=== PATIENT | female | born 1985 | race Caucasian/White ===

== ENCOUNTER 2017-04-05 11:17 | Inpatient (IN) | payer MEDICAID ==
[~2017-04-05] VITALS: Ht 154.9 cm; Wt 133.2 kg
[2017-04-05 11:29] VITALS: Ht 154.9 cm; Wt 133.2 kg
[2017-04-05 11:30] VITALS: BP 142/67; PULSE 75; RESP 20
[2017-04-05] MEDS ORDERED: PRENAT PO (12:01)
[2017-04-05] MEDS ORDERED: FER325 PO (12:01)
[2017-04-05 13:04] LABS: ADD SCAN DIFF NO
[2017-04-05 13:09] LABS: BASOPHILS % 0.1 % (0.0-2.0); EOSINOPHILS # 0.1 10^3/ul (0.0-0.5); EOSINOPHILS % 1.4 % (0.0-7.0); HEMATOCRIT 27.7 % (37.0-47.0); HEMOGLOBIN 9.4 g/dl (12.0-16.0); LYMPHOCYTES # 1.7 10^3/ul (0.8-2.9); LYMPHOCYTES % 22.1 % (15.0-51.0); MEAN CORPUSCULAR HEMOGLOBIN 28.2 pg (29.0-33.0); MEAN CORPUSCULAR HGB CONC 33.9 g/dl (32.0-37.0); MEAN CORPUSCULAR VOLUME 83.2 fl (82.0-101.0); MEAN PLATELET VOLUME 11.7 fl (7.4-10.4); MONOCYTE # 0.4 10^3/ul (0.3-0.9); MONOCYTES % 5.3 % (0.0-11.0); NEUTROPHIL # 5.5 10^3/ul (1.6-7.5); NEUTROPHILS % 70.2 % (39.0-77.0); PLATELET COUNT 223 10^3/UL (140-415); RED BLOOD COUNT 3.33 10^6/ul (4.20-5.40); RED CELL DISTRIBUTION WIDTH 14.1 % (11.5-14.5); WHITE BLOOD COUNT 7.8 10^3/ul (4.8-10.8)
--- NOTE | 2017-04-05 13:22 | RADRPT ---
PROCEDURE: US OB. CLINICAL INDICATION: Twin gestation. Hypertension. TECHNIQUE: Multiple sonographic images of the uterus were obtained. The images were revi ewed on a PACS workstation. COMPARISON: No prior studies are available for comparison. FINDINGS: There is a live twin gestation gestation. Twin A: heart rate is 122 beats per minute. Measurements were made in order to determine age. The results are as follows: BPD = 8.33 cm. HC = 29.94 cm. AC = 30.20 cm. FL = 6.35 cm. Estimated weight is 2238 +/- 336 grams. LMP growth percentile is 52 %. Maximum vertical pocket of amniotic fluid is 3.4 cm. Menstrual age by ultrasound dates is 33 weeks 3 days. The estimated date of delivery is 05/21/2017. Position is cephalic right and placenta is fundal grade II. There is no evidence for an abruption or placenta previa. Twin B: heart rate is 122 beats per minute. Measurements were made in order to determine age. The results are as follows: BPD = 8.29 cm. HC = 30.13 cm. AC = 30.32 cm. FL = 6.32 cm. Estimated weight is 2245 +/- 337 grams. LMP growth percentile is 53 %. Maximum vertical pocket of amniotic fluid is 4.8 cm. Menstrual age by ultrasound dates is 33 weeks 3 days. The estimated date of delivery is 05/21/2017. Position is transverse left and placenta is fundal grade II. There is no evidence for an abruption o r placenta previa. IMPRESSION: 1. Twin gestation as described above. RPTAT: QQ .Jake Gardner MD, Date Time Electronically viewed and signed by .Jake Gardner MD, on 04/05/2017 13:22 .R/
[2017-04-05 13:30] LABS: ALBUMIN 2.9 g/dl (3.3-4.9); CALCIUM 8.5 mg/dl (8.4-10.2); CREATININE 1.13 mg/dl (0.44-1.00); PHOSPHORUS 4.3 mg/dl (2.5-4.9); POTASSIUM 4.7 mmol/L (3.5-5.1)
[2017-04-05 13:31] LABS: BILIRUBIN,INDIRECT 0.1 mg/dl (0-1.1); BILIRUBIN,TOTAL 0.1 mg/dl (0.2-1.3); URIC ACID 7.7 mg/dl (3.1-7.9)
[2017-04-05 13:32] LABS: INR 0.86; PARTIAL THROMBOPLASTIN TIME 29.3 Sec (25.0-35.0); PROTIME 11.7 Sec (12.2-14.2); PT RATIO 0.9
[2017-04-05 14:03] LABS: ADD UMIC YES; UR ASCORBIC ACID 20 mg/dL (NEGATIVE); UR BACTERIA FEW /HPF (NONE SEEN); UR BILIRUBIN (Dip) NEGATIVE (NEGATIVE); UR BLOOD (Dip) 1+ mg/dL (NEGATIVE); UR CLARITY SLIGHTLY CLOUDY (CLEAR); UR COLOR YELLOW (YELLOW); UR GLUCOSE (Dip) NEGATIVE (NEGATIVE); UR KETONES (Dip) NEGATIVE (NEGATIVE); UR LEUKOCYTE ESTERASE (Dip) NEGATIVE Leu/ul (NEGATIVE); UR MUCUS FEW /HPF (NONE SEEN); UR NITRITE (Dip) NEGATIVE (NEGATIVE); UR RBC 19 /HPF (0-5); UR SQUAMOUS EPITHELIAL CELL FEW /HPF (FEW); UR TOTAL PROTEIN (Dip) 2+ mg/dl (NEGATIVE); UR UROBILINOGEN (Dip) NEGATIVE (NEGATIVE)
--- NOTE | 2017-04-05 15:54 | TRIAGE ---
OB Triage Datetime Report Generated by CPN: 04/05/2017 15:53 Datetime: 04/05/2017 15:30 Stage of : OB Triage Datetime: 04/05/2017 15:25 Stage of : OB Triage Datetime: 04/05/2017 12:57 Stage of : OB Triage Datetime: 04/05/2017 12:55 Stage of : OB Triage Datetime: 04/05/2017 12:20 Stage of : OB Triage Datetime: 04/05/2017 12:19 Comments: EFM OFF Datetime: 04/05/2017 12:12 EGA: 33.2 Datetime: 04/05/2017 11:50 Stage of : OB Triage Maternal Assessment Level of Consciousness: Fully Conscious DTR's/Clonus: DTRs 1+; No Clonus Headache: Frontal Blurred Vision: No Respiratory Effort: Unlabored; Regular Rhythm; Equal Expansion Breath Sounds, Left: Clear and Equal Breath Sounds, Right: Clear and Equal Nausea/Vomiting: Denies RUQ Epigastric Pain: Denies Lower Extremities Edema: Bilateral Lower Extremities Degree: Pitting Upper Extremities Edema: None Facial Edema: None Fall Risk Assessment History of Falling: (0) No Secondary Diagnosis: (0) No Ambulatory Aid: (0) Bedrest/Nurse Assist IV Therapy: (0) No Gait: (0) Normal/Bedrest/Immobile Mental Status: (0) Oriented to Own Ability Fall Score: 0 Fall Risk Score Definition: No Risk: No action required Labor Evaluation Frequency: 0 Monitor Mode: External Heart Rate FHR Baseline Rate: 120 Monitor Mode: External US FHR Baseline Changes: No Baseline Change Variability: Moderate 6-25 bpm Accelerations: 15X15 Decelerations: None Category: Category I Pain Assessment Pain Scale: 1 Pain Presence: Intermittent Pain Type: Pressure Pain Location: Head Pain Relief Measures: Comfort Measures Pain Assessment Comments: SLIGHT HEADACHE Vaginal Exam Membrane Status: Intact Datetime: 04/05/2017 11:40 Time of Arrival: 04/05/2017 11:12 Arrived By: Wheelchair Arrived From: [facility] Chief Complaint: LE SWELLING /SLIGHT HEADACHE/SEND FROM [facility] OFFICE FOR ELEVATED BP Movement: Present Contractions: Denies/Absent Rupture of Membranes: Denies Vaginal Bleeding: None Vaginal Discharge: Denies Recent Sexual Intercouse: Denies Abdominal Trauma: Not Applicable Patient Complaints: Dependent Edema Initial Plan: NST /BP CHECK /CALL
[2017-04-05] MEDS: BETAMET NA PHOS/AC(6 MG/ML) 5ML INJ IM SCH (16:22)
[2017-04-05] MEDS: ACETAMINOPHEN 325 MG TAB PO PRN (23:06)
--- NOTE | 2017-04-06 00:27 | HP ---
Date/Time of Note Date/Time of Note DATE: 04/06/17 TIME: 00:04 OB - History Hx of Present Free Text/Dictation 32y.o at 33w3d with twin gestation was admitted for further evaluation and preparation for poss early delivery for elevation of . patient had previous section for non reassuring FHR? in [place] denies any episodes of high blood pressure prior to this . no c/o subjective symptoms exceopt swollen feet which is mild. add: 09/17/16 HBsAg pos and 01/26/17 NEG HBeAg neg 3hr GTT WNL 24hr urine for protein and cr started. patient also desire to have BTL Chief Complaint: elevated blood pressure at office Estimated Due Date: May 22, 2017 : 2 Para: 1 Spontaneous : 0 Therapeutic : 0 Care: Good Care Ultrasounds: Normal mid trimester US Obstetrical Complications: Gestational Hypertension, Other (twin gestation) Medical Complications: Other (HBsAg pos , HBeAg neg) Past Family/Social History * Past Medical, Surgical, Family and Obstetric Histories reviewed from chart. Rubella: not immune RPR/VDRL: Negative GBS Status: Unknown HBsAG: Positive OB Admission Exam Vital Signs Vital Signs Vital Signs Date Time Temp Pulse Resp B/P Pulse Ox O2 Delivery O2 Flow Rate FiO2 04/05/17 11:30 98.3 75 20 142/67 98 Room Air Physical Exam HEENT: WNL Heart: Rhythm Normal Lungs: Clear, Equal Abdomen: WNL Extremities: Edema Reflexes: Normal Cervical Dilatation: other Effacement: Other Station: Other Membranes: Intact Amniotic Fluid: Unevaluable Accelerations: Accelerations Present Decelerations: No Decelerations Varibility: Moderate Contractions on Admission: None Last 72 hours Lab Results CBC & BMP 04/05/17 12:55 Liver Function Test 04/05/17 12:55 Alanine Aminotransferase (ALT/SGPT) 29 Albumin 2.9 L Alkaline Phosphatase 101 Aspartate Amino Transf (AST/SGOT) 19 Direct Bilirubin 0.00 Total Protein 6.0 L OB Assessment/Plan Reason for admission: other Other Assessment: IUP 33w3d twin gestation PIH s/p x1 bmz Other plan: sa BRAYDON Arreola MD Apr 06, 2017 00:14
[2017-04-06] MEDS: ACETAMINOPHEN 325 MG TAB PO PRN ×3 (06:20→23:39)
[2017-04-06] MEDS: BETAMET NA PHOS/AC(6 MG/ML) 5ML INJ IM SCH (10:37)
--- NOTE | 2017-04-06 10:49 | HP ---
Date/Time of Note Date/Time of Note DATE: 04/06/17 TIME: 10:34 OB - History Hx of Present Free Text/Dictation 32 YO with IUP at 33.3 weeks with Twins [place]-Di admitted for PIH. Patient BPs in early IUP were 120-130s/70-80s. she reported to office with headache. she was sent to L&D for further evaluations. BPs: Elevated in mild range when she is sitting on a chair Labs: 2+ protein (previously neg). 24 hr urine in process, elevated creatinine and uric acid. normal LFTs and Plt she was given Tylenol, but she continues with Headache (mild at this time). Denies visual changes or RUQ pain. sono: S=D on both twins, concordant, normal SOFI on both twins. Care: Good Care Ultrasounds: Normal mid trimester US Obstetrical Complications: Other (Anemia, + Hep B with negative BE Antigen and negative B Surface antigen and low positive B surface antibody. (health department was contacted and patient has chronic not active Hep B), Obese) Medical Complications: Other (Anemia, + Hep B with negative BE Antigen and negative B Surface antigen and low positive B surface antibody. (health department was contacted and patient has chronic not active Hep B), Obese) Other Concerns: Anemia, + Hep B with negative BE Antigen and negative B Surface antigen and low positive B surface antibody. (health department was contacted and patient has chronic not active Hep B), Obese, Desires repeat c/s and BTL Past Family/Social History * h/o c/s. Anemia, + Hep B with negative BE Antigen and negative B Surface antigen and low positive B surface antibody. (health department was contacted and patient has chronic not active Hep B), Obese OB Admission Exam Vital Signs Vital Signs Vital Signs Date Time Temp Pulse Resp B/P Pulse Ox O2 Delivery O2 Flow Rate FiO2 04/05/17 11:30 98.3 75 20 142/67 98 Room Air Physical Exam HEENT: WNL Heart: Rhythm Normal Lungs: Clear, Equal Abdomen: WNL Extremities: Normal Reflexes: Normal Last 72 hours Lab Results CBC & BMP 04/05/17 12:55 Liver Function Test 04/05/17 12:55 Alanine Aminotransferase (ALT/SGPT) 29 Albumin 2.9 L Alkaline Phosphatase 101 Aspartate Amino Transf (AST/SGOT) 19 Direct Bilirubin 0.00 Total Protein 6.0 L OB Assessment/Plan Other Assessment: 33.3 weeks with Twins [place] Di PIH with headache h/o c/s Desires BTL + Hep B Obese Other plan: Steroids NICU and [place] Consult SCD repeat CBC, CMP Tylenol EVELIN NUNEZ MD Apr 06, 2017 10:44
[2017-04-06] MEDS ORDERED: MAGNESIUM SULFATE 4 GM/100 ML 100 ML IVPB ONE (11:30)
[2017-04-06 12:24] LABS: ADD SCAN DIFF NO
[2017-04-06 12:31] LABS: BASOPHILS % 0.2 % (0.0-2.0); HEMATOCRIT 31.5 % (37.0-47.0); HEMOGLOBIN 10.2 g/dl (12.0-16.0); LYMPHOCYTES # 1.4 10^3/ul (0.8-2.9); MEAN CORPUSCULAR HEMOGLOBIN 27.2 pg (29.0-33.0); MEAN CORPUSCULAR HGB CONC 32.4 g/dl (32.0-37.0); MEAN PLATELET VOLUME 12.3 fl (7.4-10.4); MONOCYTE # 0.4 10^3/ul (0.3-0.9); MONOCYTES % 4.1 % (0.0-11.0); NEUTROPHILS % 80.5 % (39.0-77.0); PLATELET COUNT 250 10^3/UL (140-415); RED BLOOD COUNT 3.75 10^6/ul (4.20-5.40); RED CELL DISTRIBUTION WIDTH 14.1 % (11.5-14.5); WHITE BLOOD COUNT 9.9 10^3/ul (4.8-10.8)
[2017-04-06] MEDS: MAGNESIUM SULFATE 20 GM/500 ML 500 ML IV SCH ×2 (12:37→23:19)
[2017-04-06 12:51] LABS: ALBUMIN 3.3 g/dl (3.3-4.9); ALBUMIN/GLOBULIN RATIO 0.97; BILIRUBIN,INDIRECT 0.2 mg/dl (0-1.1); BILIRUBIN,TOTAL 0.2 mg/dl (0.2-1.3); CALCIUM 8.7 mg/dl (8.4-10.2); CREATININE 1.23 mg/dl (0.44-1.00); TOTAL PROTEIN 6.7 g/dl (6.1-8.1)
[2017-04-06 13:00] LABS: ALBUMIN 3.3 g/dl (3.3-4.9); BILIRUBIN,INDIRECT 0.1 mg/dl (0-1.1); BILIRUBIN,TOTAL 0.1 mg/dl (0.2-1.3); CALCIUM 8.7 mg/dl (8.4-10.2); CREATININE 1.24 mg/dl (0.44-1.00); PHOSPHORUS 4.5 mg/dl (2.5-4.9); POTASSIUM 5.2 mmol/L (3.5-5.1); TOTAL PROTEIN 6.5 g/dl (6.1-8.1)
[2017-04-06] MEDS: LACTATED RINGER'S 1,000 ML IV SCH (14:33)
--- NOTE | 2017-04-06 14:39 | PERINOTE ---
Date/Time of Note Date/Time of Note DATE: 04/06/17 TIME: 14:28 Assessment/Recommendations Other Assessments Twin IUP New onset of hypertension and proteinuria, likely preeclampsia. Condition is severe by BP criteria. 24 hour urine is pending. Maternal obesity Prior delivery Recommendations: If the patient remains stable, I would await completion of her course of steroids (24 hours post the second dose). I would then consider delivery by 34 weeks GA given twin gestation and the severe maternal BPs. Would deliver earlier if the BP becomes uncontrolled or if other abnormalities (for example low platelets or severe headache) occur. OB Subjective Free Text/Dictaton Patient with known twin , referred from Ob office for hypertension. HD# 2 IUP @ 33W3D Complaints/Overnight events Patient denies headache currently, reports active movement. Current Medications Current Medications Betamethasone Acet/Betameth SodPhos (Celestone Soluspan) 12 mg Q24H IM Last administered on 04/06/17 10:37; Admin Dose 12 MG; Start 04/05/17 at 16:00; Stop 04/06/17 at 16:01 Acetaminophen 650 mg 650 mg Q6H PRN PO PAIN AND OR ELEVATED TEMP Last administered on 04/06/17 06:20; Admin Dose 650 MG; Start 04/05/17 at 23:00 Lactated Ringer's 1,000 ml @ 75 mls/hr [id number] IV ; Start 04/06/17 at 11:30 Magnesium Sulfate (Magnesium Sulfate 20 Gm/500 ml) 500 ml @ 50 mls/hr Q10H IV Last administered on 04/06/17 12:37; Admin Dose 50 MLS/HR; Start 04/06/17 at 11 :30 Past Medical History Medical History: no pertinent history Surgical History: other ( delivery) PRESERVATIONIST History: no pertinent PRESERVATIONIST history Para: 1 : 2 LMP (Females 10-50): Family History Significant Family History: diabetes OB Admission Exam Physical Exam Vitals: Vital Signs Date Time Temp Pulse Resp B/P Pulse Ox O2 Delivery O2 Flow Rate FiO2 04/05/17 11:30 98.3 75 20 142/67 98 Room Air 04/06/17 131/69 Max BPs since admission: 169/97. Patient had one BP of 158/120 that has not been repeated and seem questionable Abdomen: WNL Extremities: Normal Reflexes: Normal ((patient on magnesium)) Heart Rate: 120's (115 x 2) Accelerations: Accelerations Present (x 2) Decelerations: No Decelerations Varibility: Moderate Contractions on Admission: 6-10 Minutes Apart (with some coupling) Last 72 hours Lab Results CBC & BMP 04/05/17 12:55 04/06/17 11:50 04/06/17 11:54 Liver Function Test 04/05/17 12:55 04/06/17 11:50 04/06/17 11:54 Alanine Aminotransferase (ALT/SGPT) 29 27 32 Albumin 2.9 L 3.3 3.3 Alkaline Phosphatase 101 112 110 Aspartate Amino Transf (AST/SGOT) 19 25 24 Direct Bilirubin 0.00 0.00 0.00 Total Protein 6.0 L 6.5 6.7 Copies To: CC: EVELIN NUNEZ MD, MARIE H MD Apr 06, 2017 14:39
--- NOTE | 2017-04-06 14:42 | QN ---
Documentation Job number: Neonatology consultation Comment Referring physician Dr. Davis I was asked to talk with his mother who is 33.3 week with twins and with elevated blood pressure. Mother is a 32-year-old 2 para 1 term 1 Ab0 with good care. EDC 05/22/2017. Mother's labs are as follows: Blood type O+, antibody negative, RPR nonreactive, rubella non-immune, HBsAg positive, HIV negative, GC and chlamydia cultures negative. There is no history of hypertension diabetes mellitus alcohol tobacco or drug use. was complicated by twins and - induced hypertension. Mother was admitted on 04/05 and received first dose of betamethasone at 1622 hrs. and second dose was given on 72 at 1037. Mother was also started on magnesium sulfate on 721 and blood pressure seems to be improving. Estimated weight on ultrasound was 2238 g and 2245 g. I discussed with mother about the infant's being monitored for respiratory distress and treatment with oxygen administration and CPAP and and more support if infants have respiratory distress including ventilatory therapy and Curosurf administration. I also discussed about incidence of apnea of prematurity and to be monitored for apnea. Discussed about the infant's being on IV nutrition initially and subsequently to be started on tube feedings when they are clinically stable. Discussed about the significance of breastmilk and recommended mother to pump breastmilk. Mother wants to breast-feed infant's. Also discussed about the feedings to be gradually increased and supplementation with the TPN and intralipids. Discussed about increased risk of infection and labs to be obtained on admission and to be monitored clinically or started on antibiotics depending on infant's clinical conditions. Also discussed about increased risk of poor feeding, risk for aspiration, tube feedings, and gastroesophageal reflux, and rare incidence of NEC. Also discussed about possibility of hyperbilirubinemia and treatment with phototherapy. Discussed about length of stay of 2-4 weeks depending on clinical stability and 's nippling ability. Discussed about good prognosis and all mother's questions were answered and the discussion was concluded after mother had no further questions. Thank you for the consultation MARGY LANGE MD Apr 06, 2017 14:42
[2017-04-06 16:11] LABS: FIBRIN SPLIT PRODUCT <10 ug/ml (<10)
[2017-04-06 17:11] LABS: SCRET 1.24 mg/dl (0.44-1.00)
[2017-04-06] MEDS ORDERED: ACETAMINOPHEN 500 MG TAB PO STA (17:30)
[2017-04-07] MEDS: LACTATED RINGER'S 1,000 ML IV SCH ×2 (04:03→16:29)
--- NOTE | 2017-04-07 08:59 | PN ---
Date/Time of Note Date/Time of Note DATE: 04/07/17 TIME: 08:51 OB Subjective Subjective Subjective Patient is 2 para 1 at 33 weeks and 5 days of gestation with twins and estimated date of delivery on May 21, 2017 She was admitted for PIH and placed on magnesium sulfate Patient received 2 doses of betamethasone for lung maturity OB Objective Objective Objective Patient complaining of some mild headache and some chest pain on deep inspiration She is also complaining of mild blurry vision She does not complain of any contractions or abdominal pain Last magnesium level 7 PROCEDURE: US OB. CLINICAL INDICATION: Twin gestation. Hypertension. TECHNIQUE: Multiple sonographic images of the uterus were obtained. The images were reviewed on a PACS workstation. COMPARISON: No prior studies are available for comparison. FINDINGS: There is a live twin gestation gestation. Twin A: heart rate is 122 beats per minute. Measurements were made in order to determine age. The results are as follows: BPD = 8.33 cm. HC = 29.94 cm. AC = 30.20 cm. FL = 6.35 cm. Estimated weight is 2238 +/- 336 grams. LMP growth percentile is 52 %. Maximum vertical pocket of amniotic fluid is 3.4 cm. Menstrual age by ultrasound dates is 33 weeks 3 days. The estimated date of delivery is 05/21/2017. Position is cephalic right and placenta is fundal grade II. There is no evidence for an abruption or placenta previa. Twin B: heart rate is 122 beats per minute. Measurements were made in order to determine age. The results are as follows: BPD = 8.29 cm. HC = 30.13 cm. AC = 30.32 cm. FL = 6.32 cm. Estimated weight is 2245 +/- 337 grams. LMP growth percentile is 53 %. Maximum vertical pocket of amniotic fluid is 4.8 cm. Menstrual age by ultrasound dates is 33 weeks 3 days. The estimated date of delivery is 05/21/2017. Position is transverse left and placenta is fundal grade II. There is no evidence for an abruption or placenta previa. IMPRESSION: 1. Twin gestation as described above. RPTAT: QQ .Jake Gardner MD, MD Date Time Electronically viewed and signed by .Jake Gardner MD, MD on 04/05/2017 13:22 .R/ CC: EVELIN NUNEZ MD HEENT: WNL Heart: Rhythm Normal Lungs: Clear, Equal Abdomen: WNL Extremities: Normal Reflexes: Normal Heart Rate: 140's Accelerations: Accelerations Present Decelerations: No Decelerations OB Assessment/Plan Other Assessment: Twins gestation at 33 weeks and 5 days of gestation with PIH We will DC magnesium sulfate Ultrasound for biophysical profile in cervical length to be done today Repeat PIH labs today Continue with present management REYMUNDO EAST MD Apr 07, 2017 08:59
[2017-04-07 09:41] LABS: BASOPHILS % 0.1 % (0.0-2.0); HEMATOCRIT 30.4 % (37.0-47.0); HEMOGLOBIN 9.9 g/dl (12.0-16.0); LYMPHOCYTES # 1.6 10^3/ul (0.8-2.9); LYMPHOCYTES % 14.7 % (15.0-51.0); MEAN CORPUSCULAR HEMOGLOBIN 27.8 pg (29.0-33.0); MEAN CORPUSCULAR HGB CONC 32.6 g/dl (32.0-37.0); MEAN CORPUSCULAR VOLUME 85.4 fl (82.0-101.0); MEAN PLATELET VOLUME 11.8 fl (7.4-10.4); MONOCYTE # 0.7 10^3/ul (0.3-0.9); MONOCYTES % 6.2 % (0.0-11.0); NEUTROPHIL # 8.4 10^3/ul (1.6-7.5); NEUTROPHILS % 76.6 % (39.0-77.0); PLATELET COUNT 279 10^3/UL (140-415); RED BLOOD COUNT 3.56 10^6/ul (4.20-5.40); RED CELL DISTRIBUTION WIDTH 14.4 % (11.5-14.5); WHITE BLOOD COUNT 10.9 10^3/ul (4.8-10.8)
[2017-04-07 10:04] LABS: ALBUMIN 3.7 g/dl (3.3-4.9); ALBUMIN/GLOBULIN RATIO 1.15; BILIRUBIN,INDIRECT 0.1 mg/dl (0-1.1); BILIRUBIN,TOTAL 0.1 mg/dl (0.2-1.3); CALCIUM 7.9 mg/dl (8.4-10.2); CREATININE 1.39 mg/dl (0.44-1.00); POTASSIUM 5.1 mmol/L (3.5-5.1); TOTAL PROTEIN 6.9 g/dl (6.1-8.1); URIC ACID 9.5 mg/dl (3.1-7.9)
--- NOTE | 2017-04-07 10:22 | RADRPT ---
PROCEDURE: US biophysical profile. CLINICAL INDICATION: Twin gestation, Elevated blood pressure TECHNIQUE: Multiple sonographic images of the uterus were obtained. The images were revi ewed on a PACS workstation. COMPARISON: Pelvic ultrasound at April 05, 2017 FINDINGS: There is a Twin live intrauterine gestation. Twin A: heart rate is 129 beats per minute. The position is cephalic. The placenta is fundal grade II. The MVP is 4.7 cm. Breathing Movement: 2 Gross Body Movement: 2 Tone: 2 Qualitative Amniotic Fluid Volume: 2 TOTAL: 8 Twin B: heart rate is 139 beats per minute. The position is cephalic The placenta is fundal grade II The MVP is 4.3 cm. Breathing Movement: 2 Gross Body Movement: 2 Tone: 2 Qualitative Amniotic Fluid Volume: 2 TOTAL: 8 IMPRESSION: 1. Live twin intrauterine gestation. 2. The biophysical score is 8/8 for both twins.. 3. MVP and heart rate values as above. RPTAT: UU .Janak Torrez MD, Date Time Electronically viewed and signed by .Janak Torrez MD, on 04/07/2017 10:21 .K/
[2017-04-07] MEDS: ACETAMINOPHEN 325 MG TAB PO PRN (10:38)
--- NOTE | 2017-04-07 10:39 | RADRPT ---
PROCEDURE: CERVICAL LENGTH ULTRASOUND CLINICAL INDICATION: Twin gestation. Hypertension. TECHNIQUE: Trans-vaginal imaging of the cervical canal was performed utilizing charles-scale imaging. Sagittal and transverse images were obtained. Trans-abdominal images were also obtained. The singh ges were reviewed on a PACS workstation. COMPARISON: None. FINDINGS: There is a twin live intrauterine . There is no placenta previa. The cervix is closed with a length of 3.2 cm. Twin A: heart rate is 125 beats per minute. Position is cephalic and placenta is fundal right grade II. Twin B: heart rate is 125 beats per minute. Position is cephalic and placenta is fundal right grade II. IMPRESSION: 1. Cervical length is 3.2 cm. RPTAT: QQ .Jake Gardner MD, Date Time Electronically viewed and signed by .Jake Gardner MD, on 04/07/2017 10:39 .R/
[2017-04-07] MEDS: LABETALOL 100 MG TAB PO SCH (21:30)
[2017-04-08] MEDS: ACETAMINOPHEN 325 MG TAB PO PRN (03:00)
[2017-04-08] MEDS: LACTATED RINGER'S 1,000 ML IV SCH ×5 (03:30→19:16)
[2017-04-08] MEDS: LABETALOL 100 MG TAB PO SCH (09:12)
[2017-04-08 11:05] LABS: BASOPHILS % 0.1 % (0.0-2.0); EOSINOPHILS % 0.2 % (0.0-7.0); HEMOGLOBIN 9.1 g/dl (12.0-16.0); LYMPHOCYTES # 1.6 10^3/ul (0.8-2.9); LYMPHOCYTES % 18.3 % (15.0-51.0); MEAN CORPUSCULAR HEMOGLOBIN 28.3 pg (29.0-33.0); MEAN CORPUSCULAR HGB CONC 33.7 g/dl (32.0-37.0); MEAN CORPUSCULAR VOLUME 83.9 fl (82.0-101.0); MEAN PLATELET VOLUME 11.8 fl (7.4-10.4); MONOCYTE # 0.4 10^3/ul (0.3-0.9); MONOCYTES % 4.4 % (0.0-11.0); NEUTROPHIL # 6.4 10^3/ul (1.6-7.5); NEUTROPHILS % 75.1 % (39.0-77.0); NUCLEATED RED BLOOD CELLS% 0.2 /100WBC (0.0-0.0); PLATELET COUNT 247 10^3/UL (140-415); RED BLOOD COUNT 3.22 10^6/ul (4.20-5.40); RED CELL DISTRIBUTION WIDTH 14.3 % (11.5-14.5); WHITE BLOOD COUNT 8.6 10^3/ul (4.8-10.8)
[2017-04-08 11:21] LABS: ALBUMIN 3.4 g/dl (3.3-4.9); ALBUMIN/GLOBULIN RATIO 1.09; BILIRUBIN,INDIRECT 0.1 mg/dl (0-1.1); BILIRUBIN,TOTAL 0.1 mg/dl (0.2-1.3); CALCIUM 8.1 mg/dl (8.4-10.2); CREATININE 1.26 mg/dl (0.44-1.00); POTASSIUM 4.1 mmol/L (3.5-5.1); TOTAL PROTEIN 6.5 g/dl (6.1-8.1)
[2017-04-08 12:43] LABS: INR 0.89; PT RATIO 0.9
[2017-04-08 12:44] LABS: PARTIAL THROMBOPLASTIN TIME 26.2 Sec (25.0-35.0)
[2017-04-08] MEDS ORDERED: CEFAZOLIN 2 GM/50 ML (PMX) 50 ML IV SCH ×2 (15:30→19:30)
[2017-04-08] MEDS ORDERED: OXYTOCIN 30 UNITS/LR 500 ML IV SCH (15:30)
[2017-04-08] MEDS ORDERED: METHYLERGONOVINE 0.2 MG INJ IM PRN (15:30)
[2017-04-08] MEDS ORDERED: MISOPROSTOL 200 MCG TAB PR PRN ×2 (15:30→19:30)
[2017-04-08] MEDS ORDERED: OXYTOCIN 30 UNITS/LR 500 ML IV PRN ×2 (15:30→19:30)
[2017-04-08] MEDS ORDERED: CARBOPROST 250 MCG INJ IM PRN ×2 (15:30→19:30)
[2017-04-08] MEDS ORDERED: CITRIC ACID/NA CITRATE 30 ML CUP PO ONE (17:00)
[2017-04-08] MEDS ORDERED: HYDROmorphONE 1 MG/ML SYG IV PRN ×4 (17:00→20:00)
[2017-04-08] MEDS ORDERED: DIPHENHYDRAMINE 50 MG INJ IV PRN ×2 (17:00→18:30)
[2017-04-08] MEDS ORDERED: KETOROLAC 30 MG INJ IV PRN (17:00)
[2017-04-08] MEDS ORDERED: ONDANSETRON 4 MG INJ IV PRN ×2 (17:00→18:30)
[2017-04-08] MEDS ORDERED: NALOXONE (0.4 MG/ML) INJ IV PRN (17:00)
[2017-04-08] MEDS ORDERED: METOCLOPRAMIDE 10 MG INJ ONE (17:10)
[2017-04-08] MEDS ORDERED: KETOROLAC 30 MG INJ ONE (17:10)
[2017-04-08] MEDS ORDERED: morphine SULFATE/PF (10 MG/10 ML) INJ ONE (17:10)
[2017-04-08] MEDS ORDERED: FENTAnyl 50 MCG/ML VIAL ONE (17:59)
[2017-04-08] MEDS ORDERED: ONDANSETRON 4 MG INJ ONE (18:11)
[2017-04-08] MEDS ORDERED: OXYTOCIN 30 UNITS/LR 500 ML IV ONE (18:17)
[2017-04-08] MEDS ORDERED: METOCLOPRAMIDE 10 MG INJ IV PRN (18:30)
[2017-04-08] MEDS ORDERED: MEPERIDINE 25 MG INJ IV PRN (18:30)
[2017-04-08] MEDS ORDERED: HYDROmorphONE (0.2 MG/ML) 10ML SYG IV PRN ×3 (18:30)
--- NOTE | 2017-04-08 18:34 | OPR ---
Date/Time of Note Date/Time of Note DATE: 04/08/17 TIME: 18:33 Operative Report Free Text/Dictation iup 33+ with severe PIH with ARF twins Preoperative Diagnosis iup 33+ with severe PIH ARF twins Postoperative Diagnosis same Surgeon: KENDALL SELLERS MD Co-Surgeon: DANETTE DERAS M.D. Anesthesia: spinal Estimated Blood Loss: other Specimens placenta Complications: None KENDALL SELLERS MD Apr 08, 2017 18:34
--- NOTE | 2017-04-08 18:38 | HP ---
Date/Time of Note Date/Time of Note DATE: 04/08/17 TIME: 18:34 OB - History Hx of Present Free Text/Dictation iup 33+ with twins and sevre PIH with elevated BP today and ARF with Cr 1.[address] vizcarra and MFM recommended delivery based on Cr levels and elevated BP : 2 Para: 1 Care: Good Care Ultrasounds: Normal mid trimester US Obstetrical Complications: Pre-eclampsia Past Family/Social History * Past Medical, Surgical, Family and Obstetric Histories reviewed from chart. OB Admission Exam Vital Signs Vital Signs Vital Signs Date Time Temp Pulse Resp B/P Pulse Ox O2 Delivery O2 Flow Rate FiO2 04/05/17 11:30 98.3 75 20 142/67 98 Room Air Physical Exam HEENT: WNL Heart: Rhythm Normal Abdomen: WNL Extremities: Normal Reflexes: Normal Last 72 hours Lab Results CBC & BMP 04/06/17 11:50 04/06/17 11:54 04/07/17 09:16 04/07/17 09:19 04/08/17 10:30 Liver Function Test 04/06/17 11:50 04/06/17 11:54 04/07/17 09:16 04/08/17 10:30 Alanine Aminotransferase (ALT/SGPT) 27 32 37 42 Albumin 3.3 3.3 3.7 3.4 Alkaline Phosphatase 112 110 124 H 108 Aspartate Amino Transf (AST/SGOT) 25 24 25 33 Direct Bilirubin 0.00 0.00 0.00 0.00 Total Protein 6.5 6.7 6.9 6.5 Magnesium Level Test 04/06/17 18:16 04/07/17 00:54 04/07/17 06:42 Magnesium Level 5.0 H 6.1 *H 7.0 *H OB Assessment/Plan Reason for admission: section Plan: Section Other plan: iup 33.5 with twins and sevre PIH with ARF sp bms course discussed case with MFM who recommended delivery based on pts BP and Cr levels. risks and benefits discussed. risk of infection bleeding and damgae to organs and possibility ob blood transfusion discussed. pt also desires btl. risk of failure and ectopic discussed and pt desires to procedd with c/section and BTL KENDALL SELLERS MD Apr 08, 2017 18:38
[2017-04-08] MEDS ORDERED: CA GLUCONATE (GM) 10% 10ML INJ IV PRN (19:30)
[2017-04-08] MEDS ORDERED: LANOLIN 7 GM TUBE TOP PRN (19:30)
[2017-04-08] MEDS: MAGNESIUM SULFATE 20 GM/500 ML 500 ML IV SCH (19:49)
[2017-04-08] MEDS: FERROUS SULFATE (EC) 325 MG TAB PO SCH (21:00)
[2017-04-08] MEDS: OXYTOCIN 30 UNITS/LR 500 ML IV SCH (21:03)
[2017-04-08 23:00] VITALS: BP 161/78; PULSE 62; RESP 19
[2017-04-08] MEDS: CEFAZOLIN 2 GM/50 ML (PMX) 50 ML IVPB SCH (23:46)
[2017-04-08 23:52] VITALS: BP 149/86; PULSE 58; RESP 19
[2017-04-09] VITALS (18 sets, daily range): BP systolic 139–186; BP diastolic 73–97; PULSE 18–96; RESP 17–19
[2017-04-09] MEDS: LACTATED RINGER'S 1,000 ML IV SCH ×3 (03:16→16:15)
[2017-04-09] MEDS: OXYTOCIN 30 UNITS/LR 500 ML IV SCH (03:33)
[2017-04-09 07:34] LABS: BASOPHILS % 0.1 % (0.0-2.0); EOSINOPHILS % 0.3 % (0.0-7.0); HEMATOCRIT 27.1 % (37.0-47.0); LYMPHOCYTES # 1.6 10^3/ul (0.8-2.9); LYMPHOCYTES % 15.6 % (15.0-51.0); MEAN CORPUSCULAR HGB CONC 33.2 g/dl (32.0-37.0); MEAN CORPUSCULAR VOLUME 84.4 fl (82.0-101.0); MEAN PLATELET VOLUME 12.1 fl (7.4-10.4); MONOCYTE # 0.7 10^3/ul (0.3-0.9); MONOCYTES % 6.3 % (0.0-11.0); NEUTROPHIL # 8.1 10^3/ul (1.6-7.5); NEUTROPHILS % 76.8 % (39.0-77.0); PLATELET COUNT 195 10^3/UL (140-415); RED BLOOD COUNT 3.21 10^6/ul (4.20-5.40); RED CELL DISTRIBUTION WIDTH 14.1 % (11.5-14.5); WHITE BLOOD COUNT 10.5 10^3/ul (4.8-10.8)
[2017-04-09 07:38] LABS: ALBUMIN 2.8 g/dl (3.3-4.9); ALBUMIN/GLOBULIN RATIO 1.03; BILIRUBIN,INDIRECT 0.1 mg/dl (0-1.1); BILIRUBIN,TOTAL 0.1 mg/dl (0.2-1.3); CALCIUM 7.7 mg/dl (8.4-10.2); CREATININE 1.09 mg/dl (0.44-1.00); POTASSIUM 4.8 mmol/L (3.5-5.1); TOTAL PROTEIN 5.5 g/dl (6.1-8.1)
--- NOTE | 2017-04-09 07:40 | QN ---
Documentation Comment s/p c/s Subjective: no complaint Objective: Afebrile, elevated BPs NAD A&O Abdomen: soft, appropriate tender Incision: no sign of bleeding/infection mild lochia Extremity: 1+ edema bilaterally Assessment: S/p C/S elevated BPs Plan: BP control. see orders EVELIN NUNEZ MD Apr 09, 2017 07:40
[2017-04-09] MEDS: CEFAZOLIN 2 GM/50 ML (PMX) 50 ML IVPB SCH ×2 (09:17→16:14)
[2017-04-09] MEDS: LABETALOL 200 MG TAB PO SCH ×3 (09:18→20:34)
[2017-04-09] MEDS: FERROUS SULFATE (EC) 325 MG TAB PO SCH ×2 (09:18→20:31)
[2017-04-09] MEDS: PRENATAL VITAMIN PO SCH (09:18)
--- NOTE | 2017-04-09 11:32 | OPR ---
DATE OF OPERATION: PREOPERATIVE DIAGNOSES: 1. Intrauterine at 33 and one-half weeks. 2. Twin gestation. 3. Severe preeclampsia with acute renal failure. POSTOPERATIVE DIAGNOSIS: 1. Intrauterine at 33 and one-half weeks. 2. Twin gestation. 3. Severe preeclampsia with acute renal failure. OPERATION PERFORMED: 1. Repeat low-segment transverse section. 2. Bilateral tubal ligation. SURGEON: Jay Beyer MD DEPUTY CHIEF SHERIFF: Rodolfo Quan MD COMPLICATIONS: None. FINDINGS: Viable infants, A and B. Normal tubes and ovaries. SPECIMEN: Placenta. ESTIMATED BLOOD LOSS: 700 mL INDICATIONS: The patient is a 32-year-old G2, P1 who presented at 33 and one-half weeks with elevated blood pressure. The patient was admitted, started on magnesium and betamethasone, which she has finished. On the day of surgery, the patient's blood pressure had elevated in the 170s/90s. The patient also had a creatinine of 1.3, a uric acid of 9. This was discussed with perinatology, who felt that the patient should be delivered due to severe -induced hypertension and renal failure. Risks and benefits discussed with the patient. Risks of infection, bleeding, damage to organs, possibility of blood transfusion explained to the patient. The patient understood risks and consented to procedure. The patient also desired bilateral tubal ligation. Risks and benefits were discussed which were failure and risk of tubal discussed. The patient understood the risks and consented to bilateral tubal ligation. OPERATIVE PROCEDURE: The patient was taken to the operating room where spinal anesthesia was found to be adequate. The patient was prepped and draped in normal sterile fashion. Once anesthesia was confirmed, using a scalpel, the Pfannenstiel incision was made. Incision taken down to underlying fascia. The fascia was nicked in the midline laterally in both directions and extended with manual extension. taken off the rectus muscle superiorly, applied and entered bluntly. The incision was then extended with manual extension. The bladder blade was placed in the low segment of the uterus. The uterine incision was extended with bandage scissors. A was in vertex presentation and delivered without any complications. The cord was clamped. Infant B was in breech presentation and underwent breech extraction without any difficulty. Cord clamped. The cord blood was taken from baby A and baby B. The placenta was delivered. The uterus was exteriorized, cleared of all blood clots and debris. The uterine incision was closed with an 0 Monocryl in running fashion, second imbricating was also placed. Next, the right fallopian tube was grasped with Babcocks and a salpingectomy was done using 0- Vicryl. A salpingectomy on the right side in similar fashion was done using a Babock to orange picker the tube. The fimbria and tube were removed using 0 chromic and 0 Vicryl. The uterus was placed back in the abdominal cavity. On second look, the incision was clean, dry and intact. Both of the tubal ligation sites were clean, dry and intact. The peritoneum was brought back together using 2-0 Vicryl. The fascia was closed with 0 Vicryl. The subcu fat was closed with a 2-0 plain. The skin was closed with anay. The patient tolerated the procedure well. All lap and needle counts correct x2. The patient was stable to recovery. Dictated By: Jay Beyer MD /[email or web address]/lainey /Document#: [id number]
--- NOTE | 2017-04-09 13:10 | PN ---
Date/Time of Note Date/Time of Note DATE: 04/09/17 TIME: 13:07 Assessment/Plan VTE Prophylaxis VTE Prophylaxis Intervention: SCD's Lines/Catheters IV Catheter Type (from Nrsg): Peripheral IV Subjective 24 Hr Interval Summary Free Text/Dictation Anesthesia Note: A 32 year old female s/p spinal duramorph, pod#1 is doing fine. no n/v, headache , itching, back apin related to spinal. back is clean. care per surgery Exam/Review of Systems Vital Signs Vitals Vital Signs Date Time Temp Pulse Resp B/P Pulse Ox O2 Delivery O2 Flow Rate FiO2 04/09/17 09:00 59 139/87 Room Air 04/09/17 08:00 98.0 18 04/09/17 06:27 96 2.0 Intake and Output 04/08/17 04/08/17 04/09/17 15:00 23:00 07:00 Intake Total 975 ml 1525 ml 1650 ml Output Total 600 ml 1225 ml 550 ml Balance 375 ml 300 ml 1100 ml Results Result Diagram: 04/09/17 0646 04/09/17 0646 Results 24 hrs Laboratory Tests Test 04/09/17 00:58 04/09/17 06:46 Magnesium Level 4.0 #H 4.4 H White Blood Count 10.5 # Red Blood Count 3.21 L Hemoglobin 9.0 L Hematocrit 27.1 L Mean Corpuscular Volume 84.4 Mean Corpuscular Hemoglobin 28.0 L Mean Corpuscular Hemoglobin Concent 33.2 Red Cell Distribution Width 14.1 Platelet Count 195 # Mean Platelet Volume 12.1 H Neutrophils % 76.8 Lymphocytes % 15.6 Monocytes % 6.3 Eosinophils % 0.3 Basophils % 0.1 Nucleated Red Blood Cells % 0.0 Neutrophils # 8.1 H Lymphocytes # 1.6 Monocytes # 0.7 Eosinophils # 0.0 Basophils # 0.0 Nucleated Red Blood Cells # 0.0 Sodium Level 134 L Potassium Level 4.8 Chloride Level 102 Carbon Dioxide Level 22 Anion Gap 15 Blood Urea Nitrogen 21 H Creatinine 1.09 H Glucose Level 73 # Calcium Level 7.7 L Total Bilirubin 0.1 L Direct Bilirubin 0.00 Indirect Bilirubin 0.1 Aspartate Amino Transf (AST/SGOT) 36 Alanine Aminotransferase (ALT/SGPT) 46 Alkaline Phosphatase 92 Total Protein 5.5 #L Albumin 2.8 L Globulin 2.70 Albumin/Globulin Ratio 1.03 Medications Medications Current Medications Lactated Ringer's (Lr) 1,000 ml @ 125 mls/hr Q8H IV ; Start 04/08/17 at 19:16 Oxycodone/ Acetaminophen (Percocet (5/ 325)) 1 tab Q4H PRN PO PAIN LEVEL 4-6; Start 04/08/17 at 19:30 Oxycodone/ Acetaminophen (Percocet (5/ 325)) 2 tab Q4H PRN PO PAIN LEVEL 7-10; Start 04/08/17 at 19:30 Simethicone 160 mg 160 mg Q8H PRN PO DISTENSION/GAS/BLOATING; Start 04/08/17 at 19:30 Oxytocin/Lactated Ringer's 500 ml @ 0 mls/hr ONCE PRN IV For Hemorrhage Management Last administered on 04/09/17 09:20; Admin Dose 125 MLS/HR; Start at 19:30 Carboprost Tromethamine (Hemabate) 250 mcg ONCE PRN IM VAGINAL BLEEDING; Start 04/08/17 at 19:30 Misoprostol 1000 mcg 1,000 mcg ONCE PRN MO VAGINAL BLEEDING; Start 04/08/17 at 19:30 Magnesium Sulfate (Magnesium Sulfate 20 Gm/500 ml) 500 ml @ 25 mls/hr Q20H IV Last administered on 04/08/17 19:49; Admin Dose 25 MLS/HR; Start 04/08/17 at 19 :16 Calcium Gluconate (Ca Gluc) 1 gm ONCE PRN IV FOR MAGNESIUM TOXICITY; Start 04/08 at 19:30 Ferrous Sulfate (Ferrous Sulfate (Ec)) 325 mg BID PO Last administered on 09:18; Admin Dose 325 MG; Start 04/08/17 at 21:00 Prenat Multivit/ Cavity Pump Operator/Iron/Folic Ac () 1 tab DAILY PO Last administered on 04/09/17 09:18; Admin Dose 1 TAB; Start 04/09/17 at 09:00 Naloxone HCl (Narcan) 0.1 mg Q2M PRN IV FOR RESP RATE 8 OR LESS; Start at 17:00; Stop 04/09/17 at 16:59 Ketorolac Tromethamine (Toradol) 30 mg Q6H PRN IV PAIN; Start 04/08/17 at 17:00 ; Stop 04/09/17 at 16:59 Hydromorphone HCl (Dilaudid) 1 mg Q3H PRN IV BREAKTHROUGH PAIN; Start 04/08/17 at 17:00; Stop 04/09/17 at 16:59 Hydromorphone HCl (Dilaudid) 0.2 mg Q3H PRN IV PAIN LEVEL 1-5; Start 04/08/17 at 17:00; Stop 04/09/17 at 16:59 Hydromorphone HCl (Dilaudid) 0.4 mg Q3H PRN IV PAIN LEVEL 6-10 Last administered on 04/08/17 20:02; Admin Dose 0.4 MG; Start 04/08/17 at 17:00; Stop 04/09/17 at 16:59 Diphenhydramine HCl (Benadryl) 25 mg Q6H PRN IV ITCHING; Start 04/08/17 at 17: 00; Stop 04/09/17 at 16:59 Ondansetron HCl (Zofran Inj) 4 mg Q6H PRN IV NAUSEA AND/OR VOMITING; Start at 17:00; Stop 04/09/17 at 16:59 Hydromorphone HCl 0.4 mg 0.4 mg PRN PRN IV PAIN; Start 04/08/17 at 20:00 Cefazolin Sodium/ Dextrose (Ancef 2 Gm/50 ml (Pmx)) 50 ml @ 100 mls/hr Q8H IVPB Last administered on 04/09/17 09:17; Admin Dose 100 MLS/HR; Start at 00:00; Stop 04/09/17 at 16:29 Labetalol HCl (Normodyne) 200 mg TID PO Last administered on 04/09/17 13:00; Admin Dose 200 MG; Start 04/09/17 at 09:00 Hydralazine HCl (Apresoline) 50 mg Q8H PRN PO prn SBP > 160 or DBP > 105; Start 04/09/17 at 14:00 NORIS MOREL MD Apr 09, 2017 13:10
[2017-04-09] MEDS: MAGNESIUM SULFATE 20 GM/500 ML 500 ML IV SCH (13:52)
[2017-04-09] MEDS: OXYCODONE/ACETAMINOPHEN (5/325) TAB PO PRN (18:57)
[2017-04-10] VITALS (9 sets, daily range): BP systolic 116–182; BP diastolic 68–100; PULSE 71–107; RESP 16–20
[2017-04-10] MEDS: LACTATED RINGER'S 1,000 ML IV SCH (04:33)
[2017-04-10] MEDS: OXYCODONE/ACETAMINOPHEN (5/325) TAB PO PRN ×4 (05:25→20:08)
[2017-04-10] MEDS ORDERED: AMLODIPINE 10 MG TAB PO ONE (06:00)
[2017-04-10] MEDS: PRENATAL VITAMIN PO SCH (08:45)
[2017-04-10] MEDS: FERROUS SULFATE (EC) 325 MG TAB PO SCH ×2 (08:45→20:08)
[2017-04-10] MEDS: LABETALOL 200 MG TAB PO SCH ×2 (08:45→17:10)
[2017-04-10] MEDS: NIFEdipine (XL) 60 MG TAB PO SCH (09:44)
--- NOTE | 2017-04-10 17:13 | PN ---
Date/Time of Note Date/Time of Note DATE: 04/10/17 TIME: 17:06 OB Subjective Subjective Subjective April 10, 2017 Post 2 hospital visit Patient is doing fairly well, Ambulatory She is afebrile Abdomen is soft , Fundus is firm Moderate amount of lochia Breasts are soft, Nipples are intact No calf tenderness. Incision is healing well Current Medications Medications (Trade) Dose Ordered Sig/Raghu Route PRN Reason Start Time Stop Time Status Last Admin Dose Admin Betamethasone Acet/Betameth SodPhos ([place] Soluspan) 12 mg Q24H IM 04/05/17 16:00 04/06/17 16:01 DC 04/06/17 10:37 Acetaminophen 650 mg 650 mg Q6H PRN PO PAIN AND OR ELEVATED TEMP 04/05/17 23:00 04/08/17 15:11 DC 04/08/17 03:00 Lactated Ringer's 1,000 ml @ 75 mls/hr [id number] IV 04/06/17 11:30 04/08/17 11:15 DC 04/08/17 05:11 Magnesium Sulfate 100 ml @ 200 mls/hr ONCE ONCE IVPB 04/06/17 11:30 04/06/17 11:59 DC 04/06/17 12:01 Magnesium Sulfate (Magnesium Sulfate 20 Gm/500 ml) 500 ml @ 50 mls/hr Q10H IV 04/06/17 11:30 04/07/17 08:22 DC 04/06/17 23:19 Acetaminophen (Tylenol Tab) 500 mg ONCE STAT PO 04/06/17 17:30 04/06/17 17:33 DC 04/06/17 17:40 Labetalol HCl 100 mg 100 mg BID PO 04/07/17 21:00 04/08/17 15:11 DC 04/08/17 09:12 Lactated Ringer's 1,000 ml @ 125 mls/hr Q8H IV 04/08/17 11:30 04/08/17 19:18 DC 04/08/17 16:53 Cefazolin Sodium/ Dextrose 50 ml @ 100 mls/hr ONCE IV 04/08/17 15:30 04/08/17 19:18 DC Oxytocin/Lactated Ringer's 500 ml @ 125 mls/hr ONCE IV 04/08/17 15:30 04/08/17 19:18 DC Oxytocin/Lactated Ringer's 500 ml @ 0 mls/hr ONCE PRN IV For Hemorrhage Management 04/08/17 15:30 04/08/17 19:19 DC Methylergonovine Maleate (Methergine) 0.2 mg ONCE PRN IM VAGINAL BLEEDING 04/08/17 15:30 04/08/17 19:19 DC Carboprost Tromethamine (Hemabate) 250 mcg ONCE PRN IM VAGINAL BLEEDING 04/08/17 15:30 04/08/17 19:19 DC Misoprostol (Cytotec) 1,[address] VAGINAL BLEEDING 04/08/17 15:30 04/08/17 19:19 DC Citric Acid/ Sodium Citrate (Bicitra) 30 ml PRE-OP ONCE PO 04/08/17 17:00 04/08/17 17:01 DC 04/08/17 16:56 Metoclopramide HCl (Reglan) 10 mg STK-MED ONCE .ROUTE 04/08/17 17:10 04/08/17 17:11 DC Morphine Sulfate (Duramorph) 10 mg STK-MED ONCE .ROUTE 04/08/17 17:10 04/08/17 17:11 DC Ketorolac Tromethamine (Toradol) 30 mg STK-MED ONCE .ROUTE 04/08/17 17:10 04/08/17 17:11 DC Fentanyl (Sublimaze) 100 mcg STK-MED ONCE .ROUTE 04/08/17 17:59 04/08/17 18:00 DC Ondansetron HCl 4 mg 4 mg STK-MED ONCE .ROUTE 04/08/17 18:11 04/08/17 18:12 DC Oxytocin/Lactated Ringer's 500 ml @ ud STK-MED ONCE IV 04/08/17 18:17 04/08/17 18:18 DC Hydromorphone HCl (Dilaudid (Rec)) 0.2 mg PACU ORDER PRN IV MILD PAIN LEVEL 1-3 04/08/17 18:30 04/08/17 19:19 DC Hydromorphone HCl (Dilaudid (Rec)) 0.4 mg PACU ORDER PRN IV MODERATE PAIN LEVEL 4-6 04/08/17 18:30 04/08/17 19:19 DC Hydromorphone HCl (Dilaudid (Rec)) 0.6 mg PACU ORDER PRN IV SEVERE PAIN LEVEL 7-10 04/08/17 18:30 04/08/17 19:19 DC Ondansetron HCl (Zofran Inj) 4 mg PACU ORDER PRN IV NAUSEA AND/OR VOMITING 04/08/17 18:30 04/08/17 19:19 DC Metoclopramide HCl (Reglan) 10 mg PACU ORDER PRN IV NAUSEA AND/OR VOMITING 04/08/17 18:30 04/08/17 19:19 DC Meperidine HCl (Demerol) 25 mg PACU ORDER PRN IV POST-OP RIGORS 04/08/17 18:30 04/08/17 19:19 DC Diphenhydramine HCl 25 mg 25 mg PACU ORDER PRN IV PRURITUS 04/08/17 18:30 04/08/17 19:19 DC Lactated Ringer's 1,000 ml @ 125 mls/hr Q8H IV 04/08/17 19:16 04/10/17 09:57 DC 04/10/17 04:33 Cefazolin Sodium/ Dextrose 50 ml @ 100 mls/hr Q8H IV 04/08/17 19:30 04/08/17 23:36 DC Oxytocin/Lactated Ringer's 500 ml @ 125 mls/hr Q4H IV 04/08/17 19:16 04/09/17 03:15 DC 04/09/17 03:33 Oxycodone/ Acetaminophen (Percocet (5/ 325)) 1 tab Q4H PRN PO PAIN LEVEL 4-6 04/08/17 19:30 Oxycodone/ Acetaminophen (Percocet (5/ 325)) 2 tab Q4H PRN PO PAIN LEVEL 7-10 04/08/17 19:30 04/10/17 16:11 Simethicone (Mylicon) 160 mg Q8H PRN PO DISTENSION/GAS/BLOATING 04/08/17 19:30 Lanolin 1 applic 1 applic BEDSIDE MEDICATION PRN TOP BEDSIDE FOR LE TO NIPPLES 04/08/17 19:30 Oxytocin/Lactated Ringer's 500 ml @ 0 mls/hr ONCE PRN IV For Hemorrhage Management 04/08/17 19:30 04/09/17 09:20 Carboprost Tromethamine (Hemabate) 250 mcg ONCE PRN IM VAGINAL BLEEDING 04/08/17 19:30 Misoprostol 1000 mcg 1,[address] VAGINAL BLEEDING 04/08/17 19:30 Magnesium Sulfate (Magnesium Sulfate 20 Gm/500 ml) 500 ml @ 25 mls/hr Q20H IV 04/08/17 19:16 04/10/17 09:57 DC 04/09/17 13:52 Calcium Gluconate (Ca Gluc) 1 gm ONCE PRN IV FOR MAGNESIUM TOXICITY 04/08/17 19:30 Ferrous Sulfate (Ferrous Sulfate (Ec)) 325 mg BID PO 04/08/17 21:00 04/10/17 08:45 Prenat Multivit/ [place]/Iron/Folic Ac () 1 tab DAILY PO 04/09/17 09:00 04/10/17 08:45 Naloxone HCl (Narcan) 0.1 mg Q2M PRN IV FOR RESP RATE 8 OR LESS 04/08/17 17:00 04/09/17 16:59 DC Ketorolac Tromethamine (Toradol) 30 mg Q6H PRN IV PAIN 04/08/17 17:00 04/09/17 16:59 DC Hydromorphone HCl (Dilaudid) 1 mg Q3H PRN IV BREAKTHROUGH PAIN 04/08/17 17:00 04/09/17 16:59 DC Hydromorphone HCl (Dilaudid) 0.2 mg Q3H PRN IV PAIN LEVEL 1-5 04/08/17 17:00 04/09/17 16:59 DC Hydromorphone HCl (Dilaudid) 0.4 mg Q3H PRN IV PAIN LEVEL 6-10 04/08/17 17:00 04/09/17 16:59 DC 04/08/17 20:02 Diphenhydramine HCl (Benadryl) 25 mg Q6H PRN IV ITCHING 04/08/17 17:00 04/09/17 16:59 DC Ondansetron HCl (Zofran Inj) 4 mg Q6H PRN IV NAUSEA AND/OR VOMITING 04/08/17 17:00 04/09/17 16:59 DC Hydromorphone HCl 0.4 mg 0.4 mg PRN PRN IV PAIN 04/08/17 20:00 Cefazolin Sodium/ Dextrose (Ancef 2 Gm/50 ml (Pmx)) 50 ml @ 100 mls/hr Q8H IVPB 04/09/17 00:00 04/09/17 16:29 DC 04/09/17 16:14 Labetalol HCl (Normodyne) 200 mg TID PO 04/09/17 09:00 04/10/17 13:34 DC 04/10/17 08:45 Hydralazine HCl (Apresoline) 50 mg Q8H PRN PO prn SBP > 160 or DBP > 105 04/09/17 14:00 Amlodipine Besylate (Norvasc) 10 mg ONCE ONCE PO 04/10/17 06:00 04/10/17 06:01 DC Nifedipine (Procardia Xl) 60 mg DAILY PO 04/10/17 10:00 04/10/17 09:44 Labetalol HCl (Normodyne) 200 mg Q8H PO 04/10/17 17:00 New born twins are in NICU because they were born at 33 weeks Mother's blood press Today which is the second day of her was elevated to 155/90. She is currently on labetalol 200 mg every 8 hours. In addition she was placed on Procardia XL 60 mg once a day. An order was also in place in case of elevated blood pressure over 160 maximal and 105 minimal hydralazine 50 mg to be given Patient's knee-jerk reflexes are normal. Incision is clean. As she is ambulatory CARA BARRETT MD Apr 10, 2017 17:13
[2017-04-11] MEDS: LABETALOL 200 MG TAB PO SCH ×3 (01:25→17:15)
[2017-04-11 04:00] VITALS: BP 155/77; PULSE 78; RESP 20
[2017-04-11] MEDS: OXYCODONE/ACETAMINOPHEN (5/325) TAB PO PRN ×3 (05:58→21:00)
[2017-04-11 08:28] VITALS: BP 165/89; PULSE 69; RESP 18
[2017-04-11] MEDS: FERROUS SULFATE (EC) 325 MG TAB PO SCH ×2 (08:44→20:58)
[2017-04-11] MEDS: PRENATAL VITAMIN PO SCH (08:45)
[2017-04-11] MEDS: NIFEdipine (XL) 60 MG TAB PO SCH (08:46)
--- NOTE | 2017-04-11 09:31 | CONS ---
Date/Time of Note Date/Time of Note DATE: 04/11/17 TIME: : Assessment/Plan Assessment/Plan Chief Complaint/Hosp Course 1. -induced hypertension. Patient currently on labetalol, nifedipine , and PRN hydralazine for blood pressure control. The patient's blood pressure has been more or less controlled with this drug regimen. Will continue with the same drug regimen and adjust dosing as indicated. Will avoid use of any diuretics because of underlying acute kidney injury and and the risk of reduced milk volume if the patient intends to breast-feed. 2. Acute non-oliguric kidney injury. Etiology could be probably secondary to hemodynamics from underlying induced hypertension. Will avoid nephrotoxic medications. 3. Anemia. Normocytic and hypochromic. Iron supplements as per OB. 4. Obesity. BMI of 55.5 kg/m. Advised weight reduction. Additional diagnostic and therapeutic orders will be added as clinically indicated. Thank you for allowing us to participate in the patient's care. We will continue to follow the patient along with you. If you have any questions please do not hesitate to call us at extension [phone] during morning hours and [phone] at night time. Case discussed with . Problems: Consultation Date/Type/Reason Admit Date/Time Apr 05, 2017 at 15:50 Date of Consultation: Apr 11, 2017 Type of Consultation: Medical Reason for Consultation Medical management. Referring Provider: WILLIE BLOCK MD Hx of Present Illness This is a 32-year-old female who was admitted to [facility] OB department on 04/05/2017 because of bilateral lower extremity swelling as well as elevated blood pressure. This is her second and the patient had a twin gestation and was following up with outpatient OB. Patient was noticed to have severe -induced hypertension as well as acute kidney injury. The patient had a done on 04/08/2017 with delivery of twin girls. The patient also had a tubal ligation done on 2016. The patient has been having hypertension and has been on antihypertensives with fluctuating and high blood pressure readings. The patient has been on labetalol, and nifedipine along with as needed hydralazine for control of her blood pressure. The patient was also maintained on magnesium for blood pressure control and seizure prophylaxis. Hospitalist team was consulted on 04/11/2017 for medical management of persistent hypertension. The patient denied any prior history of essential hypertension. The patient denied any -induced hypertension associated with her first . The patient has a family history of essential hypertension. The patient is morbidly obese. 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 Alcohol Use: none Smoking Status: Never smoker Drug Use: none Exam/Review of Systems Vital Signs Vitals Vital Signs Date Time Temp Pulse Resp B/P Pulse Ox O2 Delivery O2 Flow Rate FiO2 04/11/17 08:28 97.9 69 18 165/89 Room Air 04/10/17 01:23 95 21 04/09/17 06:27 2.0 Intake and Output 04/10/17 04/10/17 04/11/17 15:00 23:00 07:00 Intake Total 250 ml Balance 250 ml Exam General: Morbidly obese 32 year-old female lying in bed in no apparent distress. HEENT: Normocephalic, atraumatic. Eyes: Anicteric sclerae, conjunctivae clear. ENT: Nasal septum midline, oral mucosa moist. Neck: Increased neck circumference. Respiratory: Bilaterally diminished breath sounds. No use of accessory muscles of respiration. No adventitious breath sounds. Cardiovascular: S1, S2 heard. No murmurs or gallops. Abdomen: Soft and nondistended. Obese. Bowel sounds positive in all 4 quadrants. Lower segment incision clean, dry, and intact. Genitourinary: Deferred. Extremities: No cyanosis, no clubbing. Peripheral pulses palpable. Bilateral lower extremity 2-3+ edema. Neurologic: Cranial nerves II through XII grossly intact. The patient is awake, alert, and oriented. Skin: Normal skin turgor. No skin rashes. Results Result Diagram: 04/09/17 0646 04/09/17645 Medications Medications Current Medications Oxycodone/ Acetaminophen (Percocet (5/ 325)) 1 tab Q4H PRN PO PAIN LEVEL 4-6; Start 04/08/17 at 19:30 Oxycodone/ Acetaminophen (Percocet (5/ 325)) 2 tab Q4H PRN PO PAIN LEVEL 7-10 Last administered on 04/11/17 05:58; Admin Dose 2 TAB; Start 04/08/17 at 19:30 Simethicone 160 mg 160 mg Q8H PRN PO DISTENSION/GAS/BLOATING; Start 04/08/17 at 19:30 Oxytocin/Lactated Ringer's 500 ml @ 0 mls/hr ONCE PRN IV For Hemorrhage Management Last administered on 04/09/17 09:20; Admin Dose 125 MLS/HR; Start at 19:30 Carboprost Tromethamine (Hemabate) 250 mcg ONCE PRN IM VAGINAL BLEEDING; Start 04/08/17 at 19:30 Misoprostol (Cytotec) 1,[address] VAGINAL BLEEDING; Start 04/08/17 at 19:30 Calcium Gluconate (Ca Gluc) 1 gm ONCE PRN IV FOR MAGNESIUM TOXICITY; Start 04/08 at 19:30 Ferrous Sulfate (Ferrous Sulfate (Ec)) 325 mg BID PO Last administered on 08:44; Admin Dose 325 MG; Start 04/08/17 at 21:00 Prenat Multivit/ Carpenter Apprentice/Iron/Folic Ac () 1 tab DAILY PO Last administered on 04/11/17 08:45; Admin Dose 1 TAB; Start 04/09/17 at 09:00 Hydromorphone HCl (Dilaudid) 0.4 mg PRN PRN IV PAIN; Start 04/08/17 at 20:00 Hydralazine HCl (Apresoline) 50 mg Q8H PRN PO prn SBP > 160 or DBP > 105 Last administered on 04/11/17 01:26; Admin Dose 50 MG; Start 04/09/17 at 14:00 Nifedipine (Procardia Xl) 60 mg DAILY PO Last administered on 04/11/17 08:46; Admin Dose 60 MG; Start 04/10/17 at 10:00 Labetalol HCl (Normodyne) 200 mg Q8H PO Last administered on 04/11/17 08:45; Admin Dose 200 MG; Start 04/10/17 at 17:00 FABIANA ACOSTA NP Apr 11, 2017 09:31
[2017-04-11 11:12] LABS: BASOPHILS % 0.3 % (0.0-2.0); EOSINOPHILS # 0.2 10^3/ul (0.0-0.5); EOSINOPHILS % 1.6 % (0.0-7.0); HEMATOCRIT 30.3 % (37.0-47.0); HEMOGLOBIN 9.9 g/dl (12.0-16.0); LYMPHOCYTES # 2.3 10^3/ul (0.8-2.9); MEAN CORPUSCULAR HEMOGLOBIN 27.3 pg (29.0-33.0); MEAN CORPUSCULAR HGB CONC 32.7 g/dl (32.0-37.0); MEAN CORPUSCULAR VOLUME 83.5 fl (82.0-101.0); MEAN PLATELET VOLUME 11.3 fl (7.4-10.4); MONOCYTE # 0.7 10^3/ul (0.3-0.9); MONOCYTES % 5.9 % (0.0-11.0); NEUTROPHIL # 8.3 10^3/ul (1.6-7.5); NEUTROPHILS % 71.4 % (39.0-77.0); PLATELET COUNT 258 10^3/UL (140-415); RED BLOOD COUNT 3.63 10^6/ul (4.20-5.40); RED CELL DISTRIBUTION WIDTH 14.3 % (11.5-14.5); WHITE BLOOD COUNT 11.6 10^3/ul (4.8-10.8)
[2017-04-11 11:31] LABS: ALBUMIN 3.4 g/dl (3.3-4.9); BILIRUBIN,INDIRECT 0.2 mg/dl (0-1.1); BILIRUBIN,TOTAL 0.2 mg/dl (0.2-1.3); TOTAL PROTEIN 6.3 g/dl (6.1-8.1)
[2017-04-11 11:33] LABS: CALCIUM 8.7 mg/dl (8.4-10.2); CREATININE 1.17 mg/dl (0.44-1.00); POTASSIUM 4.9 mmol/L (3.5-5.1)
[2017-04-11 12:00] VITALS: BP 141/86; PULSE 98; RESP 19
--- NOTE | 2017-04-11 12:09 | PN ---
Date/Time of Note Date/Time of Note DATE: 04/11/17 TIME: 12:04 OB Subjective Subjective Subjective Patient denies any headache, blurred vision or epigastric pain. Had headache yesterday morning that resolved. Denies any right upper quadrant or epigastric pain. Has not passed gas or bowel movement yet. Urinated. Ambulating. Complaining of gas pain. Tolerated soft diet. Urinated. Currently on 3 antihypertensive medication including labetalol 200 p.o. 3 times daily as well as nifedipine 60 mg extended release. Received hydralazine as well due to elevated blood pressure. Off of magnesium. Received magnesium for 24 hour after delivery OB Objective Objective Objective General appearance: Alert and oriented 4 patient does not appear to be in any acute distress. Obese Abdomen: Soft, appropriate tenderness due to recent surgery, abdominal obesity Incision: Clean dry and intact Slight abdominal distention. Normal bowel sounds audible. Uterus palpable below the umbilicus extremities: 3+ bilateral lower extremity Pitting edema. No cords palpable Hematology - 72 Hrs Test 04/09/17 06:46 04/11/17 10:48 White Blood Count 10.510^3/ul (4.8-10.8) # 11.610^3/ul (4.8-10.8) H Red Blood Count 3.2110^6/ul (4.20-5.40) L 3.6310^6/ul (4.20-5.40) L Hemoglobin 9.0g/dl (12.0-16.0) L 9.9g/dl (12.0-16.0) L Hematocrit 27.1% (37.0-47.0) L 30.3% (37.0-47.0) L Mean Corpuscular Volume 84.4fl (82.0-101.0) 83.5fl (82.0-101.0) Mean Corpuscular Hemoglobin 28.0pg (29.0-33.0) L 27.3pg (29.0-33.0) L Mean Corpuscular Hemoglobin Concent 33.2g/dl (32.0-37.0) 32.7g/dl (32.0-37.0) Red Cell Distribution Width 14.1% (11.5-14.5) 14.3% (11.5-14.5) Platelet Count 48148^3/UL (140-415) # 15781^3/UL (140-415) # Mean Platelet Volume 12.1fl (7.4-10.4) H 11.3fl (7.4-10.4) H Neutrophils % 76.8% (39.0-77.0) 71.4% (39.0-77.0) Lymphocytes % 15.6% (15.0-51.0) 20.0% (15.0-51.0) Monocytes % 6.3% (0.0-11.0) 5.9% (0.0-11.0) Eosinophils % 0.3% (0.0-7.0) 1.6% (0.0-7.0) Basophils % 0.1% (0.0-2.0) 0.3% (0.0-2.0) Nucleated Red Blood Cells % 0.0/100WBC (0.0-0.0) 0.0/100WBC (0.0-0.0) Neutrophils # 8.110^3/ul (1.6-7.5) H 8.310^3/ul (1.6-7.5) H Lymphocytes # 1.610^3/ul (0.8-2.9) 2.310^3/ul (0.8-2.9) Monocytes # 0.710^3/ul (0.3-0.9) 0.710^3/ul (0.3-0.9) Eosinophils # 0.010^3/ul (0.0-0.5) 0.210^3/ul (0.0-0.5) Basophils # 0.010^3/ul (0.0-0.1) 0.010^3/ul (0.0-0.1) Nucleated Red Blood Cells # 0.010^3/ul (0.0-0.0) 0.010^3/ul (0.0-0.0) Chemistry Test 04/09/17 00:58 04/09/17 06:46 04/09/17 12:15 04/11/17 10:48 Magnesium Level 4.0mg/dl (1.7-2.5) #H 4.4mg/dl (1.7-2.5) H 4.8mg/dl (1.7-2.5) H 2.0mg/dl (1.7-2.5) # Sodium Level 134mmol/L (135-144) L 143mmol/L (135-144) Potassium Level 4.8mmol/L (3.5-5.1) 4.9mmol/L (3.5-5.1) Chloride Level 102mmol/L (97-110) 104mmol/L (97-110) Carbon Dioxide Level 22mmol/L (21-31) 25mmol/L (21-31) Anion Gap 15 (8-16) 19 (8-16) H Blood Urea Nitrogen 21mg/dl (7-20) H 18mg/dl (7-20) Creatinine 1.09mg/dl (0.44-1.00) H 1.17mg/dl (0.44-1.00) H Glucose Level 73mg/dl (70-220) # 83mg/dl (70-220) Calcium Level 7.7mg/dl (8.4-10.2) L 8.7mg/dl (8.4-10.2) Total Bilirubin 0.1mg/dl (0.2-1.3) L 0.2mg/dl (0.2-1.3) Direct Bilirubin 0.00mg/dl (0.00-0.20) 0.00mg/dl (0.00-0.20) Indirect Bilirubin 0.1mg/dl (0-1.1) 0.2mg/dl (0-1.1) Aspartate Amino Transf (AST/SGOT) 36IU/L (15-46) 33IU/L (15-46) Alanine Aminotransferase (ALT/SGPT) 46IU/L (13-69) 43IU/L (13-69) Alkaline Phosphatase 92IU/L (42-121) 80IU/L (42-121) Total Protein 5.5g/dl (6.1-8.1) #L 6.3g/dl (6.1-8.1) Albumin 2.8g/dl (3.3-4.9) L 3.4g/dl (3.3-4.9) Globulin 2.70g/dl (1.3-3.2) Albumin/Globulin Ratio 1.03 Thyroid Stimulating Hormone (TSH) Pending OB Assessment/Plan Other Assessment: Status post repeat section and BTL for severe preeclampsia at 33 weeks Twin gestation. Babies are in NICU Patient received 24 hour magnesium Denies any prior history of hypertension Currently requiring 3 antihypertensive medication for management of hypertension Asymptomatic Awaiting resumption of bowel function post surgery Plan: Consulted with hospitalist for management of hypertension and meds Repeat basic metabolic panel Elevated creatinine was noted follow-up, with the results Ambulation Awaiting resumption of bowel function Simethicone 80 mg p.o. 3 times daily WILLIE BLOCK MD Apr 11, 2017 12:08
[2017-04-11 13:04] LABS: THYROID STIMULATING HORMONE 4.42 MIU/L (0.465-4.680)
[2017-04-11 16:00] VITALS: BP 149/82; PULSE 85; RESP 18
[2017-04-11 20:00] VITALS: BP 140/74; PULSE 94; RESP 20
[2017-04-12] VITALS (10 sets, daily range): BP systolic 112–165; BP diastolic 62–90; PULSE 65–101; RESP 16–20
[2017-04-12] MEDS: LABETALOL 200 MG TAB PO SCH ×2 (01:28→08:53)
[2017-04-12] MEDS: NIFEdipine (XL) 60 MG TAB PO SCH (08:52)
[2017-04-12] MEDS: FERROUS SULFATE (EC) 325 MG TAB PO SCH (08:53)
[2017-04-12] MEDS: PRENATAL VITAMIN PO SCH (08:53)
--- NOTE | 2017-04-12 09:05 | DS ---
Date/Time of Note Date/Time of Note DATE: 04/12/17 TIME: 08:58 Obstetrical Discharge Record Final Diagnosis Final Diagnosis: not delivered Other Final Diagnosis patient with twin gestation developed severe PIH. s/p repeat c/s. significant for elevated BP. she was initially managed by Procardia 60 mg daily and Labetalol 200 mg TID and hydralazine prn. today I changed the meds to Labetalol 300 mg TID, Hydralazine 50 mg Q 6 hours, Procardia XL 90 mg daily. her BPs will be monitored. CM will be done. she may be discharged if stable. I also advised her to check BP at home TID and go to ER if SBP > 150 or DBP > 100. she verbalized her understanding. she is recommended to return to my office in one week. Also explained to patient that we do not know how long she needs to take the BP meds. Advised to see PCP ELSIE. Section Section: Repeat Complications Multiple Gestation, Preg induced Hypertension Condition on Discharge Physical Assessment Voiding: Yes Bowel Movement: Yes Breast: Soft, non-tender, Filling Fundus: Firm Abdomen and Incision: soft, obese, appropriate tender, incision is clean and dry and intact Calf Tenderness: No Patient Condition: Good EVELIN NUNEZ MD Apr 12, 2017 09:05
[2017-04-12] MEDS ORDERED: LABETALOL 200 MG TAB PO SCH ×2 (09:15→15:00)
[2017-04-12] MEDS: OXYCODONE/ACETAMINOPHEN (5/325) TAB PO PRN ×2 (10:06→15:20)
--- NOTE | 2017-04-12 10:11 | CONS ---
Date/Time of Note Date/Time of Note DATE: 04/12/17 TIME: 10:08 Assessment/Plan Assessment/Plan Chief Complaint/Hosp Course 1. -induced hypertension. Patient currently on labetalol, nifedipine , and PRN hydralazine for blood pressure control. The patient's blood pressure has been more or less controlled with this drug regimen. Will continue with the same drug regimen and adjust dosing as indicated. Will avoid use of any diuretics because of underlying acute kidney injury and and the risk of reduced milk volume if the patient intends to breast-feed. 2. Acute non-oliguric kidney injury. Etiology could be probably secondary to hemodynamics from underlying induced hypertension. Will avoid nephrotoxic medications. 3. Anemia. Normocytic and hypochromic. Iron supplements as per OB. 4. Obesity. BMI of 55.5 kg/m. Advised weight reduction. Recommendations. Continue labetalol and nifedipine and as needed hydralazine for blood pressure control. The patient needs antihypertensives upon discharge. If you have any questions please do not hesitate to call us at extension [phone] during morning hours and [phone] at night time. Case discussed with . Problems: Consultation Date/Type/Reason Admit Date/Time Apr 05, 2017 at 15:50 Initial Consult Date 04/11/17 Type of Consultation: Medical Referring Provider: WILLIE BLOCK MD 24 HR Interval Summary Free Text/Dictation The patient denies any headache. The patient's blood pressure has been running high and hence the medication dosing was increased. Has not had any bowel movements yet. Less gas pain today. Exam/Review of Systems Vital Signs Vitals Vital Signs Date Time Temp Pulse Resp B/P Pulse Ox O2 Delivery O2 Flow Rate FiO2 04/12/17 06:30 73 18 146/76 Room Air 04/12/17 04:30 98.1 04/10/17 01:23 95 21 04/09/17 06:27 2.0 Exam General: Morbidly obese 32 year-old female lying in bed in no apparent distress. HEENT: Normocephalic, atraumatic. Eyes: Anicteric sclerae, conjunctivae clear. ENT: Nasal septum midline, oral mucosa moist. Neck: Increased neck circumference. Respiratory: Bilaterally diminished breath sounds. No use of accessory muscles of respiration. No adventitious breath sounds. Cardiovascular: S1, S2 heard. No murmurs or gallops. Abdomen: Soft and nondistended. Obese. Bowel sounds positive in all 4 quadrants. Lower segment incision clean, dry, and intact. Genitourinary: Deferred. Extremities: No cyanosis, no clubbing. Peripheral pulses palpable. Bilateral lower extremity 2-3+ edema. Neurologic: Cranial nerves II through XII grossly intact. The patient is awake, alert, and oriented. Skin: Normal skin turgor. No skin rashes. Results Result Diagram: 04/11/17 1048 04/11/17 1048 Results 24 hrs Laboratory Tests Test 04/11/17 10:48 White Blood Count 11.6 H Red Blood Count 3.63 L Hemoglobin 9.9 L Hematocrit 30.3 L Mean Corpuscular Volume 83.5 Mean Corpuscular Hemoglobin 27.3 L Mean Corpuscular Hemoglobin Concent 32.7 Red Cell Distribution Width 14.3 Platelet Count 258 # Mean Platelet Volume 11.3 H Neutrophils % 71.4 Lymphocytes % 20.0 Monocytes % 5.9 Eosinophils % 1.6 Basophils % 0.3 Nucleated Red Blood Cells % 0.0 Neutrophils # 8.3 H Lymphocytes # 2.3 Monocytes # 0.7 Eosinophils # 0.2 Basophils # 0.0 Nucleated Red Blood Cells # 0.0 Sodium Level 143 Potassium Level 4.9 Chloride Level 104 Carbon Dioxide Level 25 Anion Gap 19 H Blood Urea Nitrogen 18 Creatinine 1.17 H Glucose Level 83 Calcium Level 8.7 Magnesium Level 2.0 # Total Bilirubin 0.2 Direct Bilirubin 0.00 Indirect Bilirubin 0.2 Aspartate Amino Transf (AST/SGOT) 33 Alanine Aminotransferase (ALT/SGPT) 43 Alkaline Phosphatase 80 Total Protein 6.3 Albumin 3.4 Thyroid Stimulating Hormone (TSH) 4.420 Free Thyroxine 1.01 Medications Medications Current Medications Oxycodone/ Acetaminophen (Percocet (5/ 325)) 1 tab Q4H PRN PO PAIN LEVEL 4-6 Last administered on 04/11/17 21:00; Admin Dose 1 TAB; Start 04/08/17 at 19:30 Oxycodone/ Acetaminophen (Percocet (5/ 325)) 2 tab Q4H PRN PO PAIN LEVEL 7-10 Last administered on 04/11/17 14:58; Admin Dose 2 TAB; Start 04/08/17 at 19:30 Simethicone 160 mg 160 mg Q8H PRN PO DISTENSION/GAS/BLOATING Last administered on 04/11/17 11:44; Admin Dose 160 MG; Start 04/08/17 at 19:30 Oxytocin/Lactated Ringer's 500 ml @ 0 mls/hr ONCE PRN IV For Hemorrhage Management Last administered on 04/09/17 09:20; Admin Dose 125 MLS/HR; Start at 19:30 Carboprost Tromethamine (Hemabate) 250 mcg ONCE PRN IM VAGINAL BLEEDING; Start 04/08/17 at 19:30 Misoprostol (Cytotec) 1,000 mcg ONCE PRN LA VAGINAL BLEEDING; Start 04/08/17 at 19:30 Calcium Gluconate (Ca Gluc) 1 gm ONCE PRN IV FOR MAGNESIUM TOXICITY; Start 04/08 at 19:30 Ferrous Sulfate (Ferrous Sulfate (Ec)) 325 mg BID PO Last administered on 08:53; Admin Dose 325 MG; Start 04/08/17 at 21:00 Prenat Multivit/ [place]/Iron/Folic Ac () 1 tab DAILY PO Last administered on 04/12/17 08:53; Admin Dose 1 TAB; Start 04/09/17 at 09:00 Hydromorphone HCl (Dilaudid) 0.4 mg PRN PRN IV PAIN; Start 04/08/17 at 20:00 Simethicone (Mylicon) 160 mg Q8 PRN PO DISTENSION/GAS/BLOATING Last administered on 04/12/17 08:54; Admin Dose 160 MG; Start 04/11/17 at 10:30 Hydralazine HCl (Apresoline) 50 mg Q6 PRN PO SBP > 160 AND/OR DBP > 105; Start 04/12/17 at 10:00 Nifedipine (Procardia Xl) 90 mg DAILY PO ; Start 04/12/17 at 10:30 Labetalol HCl (Normodyne) 300 mg Q8 PO ; Start 04/12/17 at 15:00 Measles/Mumps/ Rubella Vaccine Live (Mmr Ii Vaccine) 0.5 ml ONCE ONCE SC* ; Start 04/12/17 at 16:00; Stop 04/12/17 at 16:01 FABIANA ACOSTA NP Apr 12, 2017 10:11
[2017-04-12] MEDS ORDERED: NIFEdipine (XL) 90 MG TAB PO SCH (10:30)
[2017-04-12 10:51] LABS: ALBUMIN 3.4 g/dl (3.3-4.9); ALBUMIN/GLOBULIN RATIO 1.21; BILIRUBIN,INDIRECT 0.2 mg/dl (0-1.1); BILIRUBIN,TOTAL 0.2 mg/dl (0.2-1.3); CALCIUM 8.6 mg/dl (8.4-10.2); CREATININE 1.07 mg/dl (0.44-1.00); POTASSIUM 4.9 mmol/L (3.5-5.1); TOTAL PROTEIN 6.2 g/dl (6.1-8.1)
[2017-04-12] MEDS ORDERED: LABETALOL 100 MG TAB PO SCH (15:00)
[2017-04-12] MEDS ORDERED: MEASLES,MUMPS,RUBELLA VACCINE INJ SC* ONE (16:00)
[2017-04-13] MEDS ORDERED: NIFEdipine (XL) 60 MG TAB PO SCH (09:00)
== END 2017-04-12 20:55 | disposition home or self-care (01) | DRG 765 ==
LOC: OBT 11:17 → L-D 11:20 → OBT 15:50 → OBG 15:50 → L-D 04-08 16:36 → PP1 04-08 22:57
PROVIDERS: ADMIT Specialist; ATTEND Specialist
PROC: 0UL70ZZ Occlusion of Bilateral Fallopian Tubes, Open Approach (ICD-10-PCS; 2017-04-08)
PROC: 10D00Z1 Extraction of Products of Conception, Low, Open Approach (ICD-10-PCS; principal; 2017-04-08 17:00)
DX: O60.12X2 Preterm labor second trimester with preterm delivery second trimester, fetus 2 (principal); O90.4 Postpartum acute kidney failure; O99.214 Obesity complicating childbirth; Z68.43 Body mass index [BMI] 50.0-59.9, adult; Z37.2 Twins, both liveborn; O99.02 Anemia complicating childbirth; E66.01 Morbid (severe) obesity due to excess calories; O13.4 Gestational [pregnancy-induced] hypertension without significant proteinuria, complicating childbirth; Z30.2 Encounter for sterilization; Z3A.33 33 weeks gestation of pregnancy
CPT/HCPCS: 36415; 76815; 76817; 76818; 80048; 80053; 80069; 80076; 81001; 82575; 83615; 83735; 84156; 84439; 84443; 84560; 85025; 85362; 85384; 85610; 85730; 86592; 86706; 86850; 86900; 86901; 86920; 87340; 88302; 88307; 94760; 99464; G0463; J0690; J0702; J1170; J1885; J2274; J2405; J2590; J2765; J3010; J3475; J7120